=== PATIENT | male | born 1980 | race Two or more races ===

== ENCOUNTER 2016-12-13 10:44 | Inpatient (IN) | payer SELFPAY ==
[~2016-12-13] VITALS: Ht 172.7 cm; Wt 80.0 kg
[2016-12-13 11:51] LABS: Basophils # (auto) 0.1 uL; Basophils % (auto) 0.4 % (0.0-2.0); Eosinophils # (auto) 0 uL; Eosinophils % (auto) 0.1 % (0.0-7.0); Hematocrit 42.5 % (41.0-53.0); Hemoglobin 14.2 g/dL (13.5-17.5); Lymphocytes # (auto) 0.9 uL; Lymphocytes % (auto) 5.2 % (10.0-50.0); Mean Corpuscular Hemoglobin 29.8 pg (28.0-32.0); Mean Corpuscular Hgb Conc. 33.4 g/dL (32.0-36.0); Mean Corpuscular Volume 89.3 fL (80.0-100.0); Mean Platelet Volume 7.3 fL (7.4-10.4); Monocytes # (auto) 0.9 uL; Monocytes % (auto) 5.3 % (0.0-12.0); Neutrophils # (auto) 14.5 uL; Platelet Count (auto) 325 10^3/uL (140-450); White Blood Cell 16.3 10^3/uL (4.4-10.8)
[2016-12-13 12:15] LABS: Albumin 4.3 g/dL (3.4-5.0); BUN/Creatinine Ratio 7.6; Bilirubin, Total 0.6 mg/dL (0.2-1.0); Calcium 9.8 mg/dL (8.5-10.1); Potassium 3.7 mmol/L (3.5-5.1); Total Protein 8.3 g/dL (6.4-8.2)
[2016-12-13 13:45] LABS: Urine Bilirubin Negative (Negative); Urine Color Yellow (Yellow); Urine Glucose Normal (Normal); Urine Ketone Negative (Negative); Urine Mucus FEW (None Seen); Urine Nitrite Negative (Negative); Urine RBC 16 /hpf (0 - 3); Urine Squamous Epithelial Cell FEW /hpf (<5); Urine Urobilinogen Normal (Negative)
[2016-12-13 13:47] LABS: Urine Blood 2+ /uL (Negative)
[2016-12-13] MEDS ORDERED: SODIUM CHLORIDE 0.9% 1,000 ML IVB ONE (14:13)
[2016-12-13] MEDS ORDERED: KETOROLAC TROMETH 30 MG/ML 1ML VIAL IV ONE (14:30)
[2016-12-13] MEDS ORDERED: ONDANSETRON HCL 4 MG/2 ML VIAL IV ONE (14:30)
[2016-12-13] MEDS ORDERED: MORPHINE SULF INJ 2 MG/ML SYRINGE 1ML IV ONE (16:00)
[2016-12-13] MEDS ORDERED: cefTRIAXone 1GM/50ML D5W 50 ML IV ONE (18:00)
[2016-12-13] MEDS ORDERED: LORazepam 0.5 MG TAB PO PRN (18:00)
[2016-12-13] MEDS ORDERED: PROMETHAZINE HCL 25 MG/ML 1ML IV PRN (18:00)
[2016-12-13] MEDS ORDERED: TEMAZEPAM 15 MG CAP PO PRN (18:00)
[2016-12-13] MEDS ORDERED: ACETAMINOPHEN 500 MG TAB PO PRN (18:00)
[2016-12-13] MEDS: SODIUM CHLORIDE 0.9% 1,000 ML IV SCH (18:41)
[2016-12-13 20:20] VITALS: BP 126/80
[2016-12-13 21:30] VITALS: BP 126/80
[2016-12-13] MEDS: MORPHINE SULF INJ 2 MG/ML SYRINGE 1ML IV PRN (22:28)
[2016-12-14] MEDS: SODIUM CHLORIDE 0.9% 1,000 ML IV SCH ×2 (04:32→18:12)
[2016-12-14] MEDS: MORPHINE SULF INJ 2 MG/ML SYRINGE 1ML IV PRN ×2 (04:41→16:36)
[2016-12-14 05:21] VITALS: BP 129/71
[2016-12-14 05:46] LABS: Basophils # (auto) 0 uL; Basophils % (auto) 0.3 % (0.0-2.0); Eosinophils # (auto) 0.1 uL; Eosinophils % (auto) 0.5 % (0.0-7.0); Hematocrit 34.5 % (41.0-53.0); Hemoglobin 11.7 g/dL (13.5-17.5); Lymphocytes # (auto) 1.3 uL; Mean Corpuscular Hemoglobin 30.1 pg (28.0-32.0); Mean Corpuscular Hgb Conc. 33.9 g/dL (32.0-36.0); Mean Corpuscular Volume 88.7 fL (80.0-100.0); Mean Platelet Volume 8.1 fL (7.4-10.4); Monocytes # (auto) 1.1 uL; Monocytes % (auto) 8.8 % (0.0-12.0); Neutrophils # (auto) 9.6 uL; Neutrophils % (auto) 79.4 % (37.0-80.0); Platelet Count (auto) 271 10^3/uL (140-450); Red Cell Distribution Width 12.8 % (11.6-16.0); White Blood Cell 12.1 10^3/uL (4.4-10.8)
[2016-12-14 06:05] LABS: Albumin 3.4 g/dL (3.4-5.0); BUN/Creatinine Ratio 9.3; Bilirubin, Total 0.6 mg/dL (0.2-1.0); Calcium 8.6 mg/dL (8.5-10.1); Potassium 3.8 mmol/L (3.5-5.1); Total Protein 6.7 g/dL (6.4-8.2)
[2016-12-14 08:00] VITALS: BP 122/72
[2016-12-14] MEDS ORDERED: cefTRIAXone 1GM/50ML D5W 50 ML IV SCH (09:00)
[2016-12-14] MEDS: HYDROcodone-ACET 5/325MG TAB PO PRN ×2 (10:27→20:18)
[2016-12-14] MEDS: TAMSULOSIN HYDROCHLORIDE 0.4 MG CAP PO SCH ×2 (10:27→18:00)
[2016-12-14 12:00] VITALS: BP 118/67
[2016-12-14] MEDS ORDERED: PIPERACILLIN-TAZOB 3.375GM 100 ML IV ONE (13:00)
[2016-12-14] MEDS ORDERED: MILK OF MAGNESIA 30ML SUSP PO ONE (14:30)
[2016-12-14] MEDS ORDERED: MILK OF MAGNESIA 30ML SUSP PO PRN (14:30)
[2016-12-14 16:00] VITALS: BP 116/72
[2016-12-14] MEDS ORDERED: MORPHINE SULFATE 4 MG/ML SYRG IV ONE (17:45)
[2016-12-14] MEDS: PIPERACILLIN-TAZOB 3.375GM 100 ML IV SCH ×2 (18:12→23:31)
[2016-12-14 22:00] VITALS: BP 139/83
[2016-12-14] MEDS: MORPHINE SULFATE 4 MG/ML SYRG IV PRN (23:26)
[2016-12-15] MEDS: SODIUM CHLORIDE 0.9% 1,000 ML IV SCH ×5 (00:26→23:23)
[2016-12-15] MEDS: HYDROcodone-ACET 5/325MG TAB PO PRN ×5 (02:22→23:19)
[2016-12-15 05:00] VITALS: BP 119/68
[2016-12-15 05:42] LABS: Albumin 3.3 g/dL (3.4-5.0); BUN/Creatinine Ratio 10.2; Bilirubin, Total 0.7 mg/dL (0.2-1.0); Calcium 8.9 mg/dL (8.5-10.1); Potassium 3.7 mmol/L (3.5-5.1); Total Protein 6.9 g/dL (6.4-8.2)
[2016-12-15] MEDS: MORPHINE SULFATE 4 MG/ML SYRG IV PRN (05:42)
[2016-12-15 05:43] LABS: Basophils # (auto) 0 uL; Basophils % (auto) 0.3 % (0.0-2.0); Eosinophils # (auto) 0.2 uL; Eosinophils % (auto) 1.4 % (0.0-7.0); Hematocrit 35.2 % (41.0-53.0); Hemoglobin 11.8 g/dL (13.5-17.5); Lymphocytes # (auto) 1.3 uL; Lymphocytes % (auto) 11.6 % (10.0-50.0); Mean Corpuscular Hgb Conc. 33.5 g/dL (32.0-36.0); Mean Corpuscular Volume 89.3 fL (80.0-100.0); Mean Platelet Volume 7.8 fL (7.4-10.4); Monocytes # (auto) 1.2 uL; Monocytes % (auto) 10.6 % (0.0-12.0); Neutrophils # (auto) 8.6 uL; Neutrophils % (auto) 76.1 % (37.0-80.0); Platelet Count (auto) 289 10^3/uL (140-450); Red Cell Distribution Width 12.7 % (11.6-16.0); White Blood Cell 11.3 10^3/uL (4.4-10.8)
[2016-12-15] MEDS: PIPERACILLIN-TAZOB 3.375GM 100 ML IV SCH ×4 (05:48→23:22)
[2016-12-15 08:00] VITALS: BP 127/71
[2016-12-15 11:55] VITALS: BP 120/84
[2016-12-15 13:37] LABS: INR 1.05 (0.9-1.15); Partial Thromboplastin Time 29.5 sec (22.64-33.71); Prothrombin Time 10.8 sec (9.37-12.3)
[2016-12-15] MEDS ORDERED: LACTULOSE 20Gm/30ML SOLN PO PRN (15:45)
[2016-12-15] MEDS ORDERED: DOCUSATE SOD 100 MG CAP PO PRN (15:45)
[2016-12-15 16:00] VITALS: BP 135/84
[2016-12-15] MEDS: TAMSULOSIN HYDROCHLORIDE 0.4 MG CAP PO SCH (18:45)
[2016-12-15 21:30] VITALS: BP 121/69
[2016-12-16] MEDS: HYDROcodone-ACET 5/325MG TAB PO PRN ×2 (03:20→21:56)
[2016-12-16 05:00] VITALS: BP 128/66
[2016-12-16] MEDS: PIPERACILLIN-TAZOB 3.375GM 100 ML IV SCH ×2 (05:32→11:40)
[2016-12-16 05:54] LABS: Basophils # (auto) 0 uL; Basophils % (auto) 0.2 % (0.0-2.0); Eosinophils # (auto) 0.2 uL; Eosinophils % (auto) 1.5 % (0.0-7.0); Hematocrit 36.5 % (41.0-53.0); Hemoglobin 12.3 g/dL (13.5-17.5); Lymphocytes # (auto) 1.3 uL; Lymphocytes % (auto) 11.4 % (10.0-50.0); Mean Corpuscular Hgb Conc. 33.6 g/dL (32.0-36.0); Mean Corpuscular Volume 89.3 fL (80.0-100.0); Mean Platelet Volume 7.8 fL (7.4-10.4); Monocytes # (auto) 1.2 uL; Monocytes % (auto) 10.4 % (0.0-12.0); Neutrophils # (auto) 8.8 uL; Neutrophils % (auto) 76.5 % (37.0-80.0); Platelet Count (auto) 315 10^3/uL (140-450); Red Cell Distribution Width 12.8 % (11.6-16.0); White Blood Cell 11.5 10^3/uL (4.4-10.8)
[2016-12-16 06:24] LABS: Albumin 3.4 g/dL (3.4-5.0); BUN/Creatinine Ratio 9.2; Bilirubin, Total 0.7 mg/dL (0.2-1.0); Calcium 9.2 mg/dL (8.5-10.1); Potassium 3.8 mmol/L (3.5-5.1); Total Protein 7.3 g/dL (6.4-8.2)
[2016-12-16] MEDS ORDERED: MEPERIDINE HCL (50 MG/ML) 1 ML VIAL ONE (08:18)
[2016-12-16] MEDS ORDERED: MIDAZOLAM HCL 1MG/1ML-2 ML VIAL ONE (08:18)
[2016-12-16] MEDS ORDERED: fentaNYL CITRATE 100 MCG/2 ML VL ONE (08:18)
[2016-12-16 08:28] VITALS: BP 128/70
[2016-12-16] MEDS ORDERED: PROPOFOL 10 MG/ML 20 ML IV ONE (08:38)
[2016-12-16] MEDS ORDERED: DEXAMETHASONE SOD PHOS 10MG/1ML VIAL INJ ONE (08:38)
[2016-12-16] MEDS ORDERED: KETOROLAC TROMETH 30 MG/ML 1ML VIAL ONE (08:39)
[2016-12-16] MEDS ORDERED: MORPHINE SULF INJ 2 MG/ML SYRINGE 1ML IV PRN (09:00)
[2016-12-16] MEDS ORDERED: MIDAZOLAM HCL 1MG/1ML-2 ML VIAL IV PRN (09:00)
[2016-12-16] MEDS ORDERED: KETOROLAC TROMETH 30 MG/ML 1ML VIAL IV ONE (09:00)
[2016-12-16] MEDS ORDERED: LABETALOL HCL 5 MG/ML 4ML SYRINGE IV PRN (09:00)
[2016-12-16] MEDS ORDERED: ONDANSETRON HCL 4 MG/2 ML VIAL IV ONE (09:00)
[2016-12-16] MEDS ORDERED: ePHEDrine SULFATE 50 MG/ML AMP IV PRN (09:00)
[2016-12-16] MEDS ORDERED: HYDROmorphone HCL 2 MG/ML VL IV PRN (09:00)
[2016-12-16] MEDS: SODIUM CHLORIDE 0.9% 1,000 ML IV SCH ×3 (09:46→22:02)
[2016-12-16 12:54] VITALS: BP 123/75
[2016-12-16] MEDS ORDERED: cefTRIAXone 1GM/50ML D5W 50 ML IV ONE (13:30)
[2016-12-16 16:51] VITALS: BP 114/59
[2016-12-16] MEDS: TAMSULOSIN HYDROCHLORIDE 0.4 MG CAP PO SCH (17:19)
[2016-12-16 22:00] VITALS: BP 123/70
[2016-12-17] MEDS: HYDROcodone-ACET 5/325MG TAB PO PRN ×3 (03:18→12:56)
[2016-12-17 05:30] VITALS: BP 125/72
[2016-12-17 05:55] LABS: Basophils # (auto) 0 uL; Basophils % (auto) 0.4 % (0.0-2.0); Eosinophils # (auto) 0.3 uL; Eosinophils % (auto) 2.5 % (0.0-7.0); Hematocrit 36.5 % (41.0-53.0); Hemoglobin 12.4 g/dL (13.5-17.5); Lymphocytes # (auto) 1.2 uL; Mean Corpuscular Hemoglobin 30.1 pg (28.0-32.0); Mean Corpuscular Volume 88.6 fL (80.0-100.0); Mean Platelet Volume 7.6 fL (7.4-10.4); Monocytes % (auto) 8.6 % (0.0-12.0); Neutrophils # (auto) 9.5 uL; Neutrophils % (auto) 78.5 % (37.0-80.0); Platelet Count (auto) 329 10^3/uL (140-450); Red Cell Distribution Width 12.6 % (11.6-16.0); White Blood Cell 12.1 10^3/uL (4.4-10.8)
[2016-12-17 06:47] LABS: Potassium 3.8 mmol/L (3.5-5.1)
[2016-12-17 06:51] LABS: BUN/Creatinine Ratio 7.3; Calcium 8.7 mg/dL (8.5-10.1)
[2016-12-17] MEDS ORDERED: cefTRIAXone 1GM/50ML D5W 50 ML IV SCH (09:00)
[2016-12-17 09:06] VITALS: BP 112/66
[2016-12-17] MEDS: SODIUM CHLORIDE 0.9% 1,000 ML IV SCH (09:24)
[2016-12-17 12:01] VITALS: BP 118/76
[2016-12-17] MEDS ORDERED: TAM04C PO (13:42)
[2016-12-17] MEDS ORDERED: CIPR-217 PO (13:44)
[2016-12-17 14:41] LABS: Albumin 3.5 g/dL (3.4-5.0); Bilirubin, Direct 0.2 mg/dL (0-0.2); Bilirubin, Total 0.4 mg/dL (0.2-1.0); Total Protein 7.8 g/dL (6.4-8.2)
[2016-12-17 17:22] VITALS: BP 120/72
== END 2016-12-17 17:30 | disposition home or self-care (01) | DRG 694 ==
LOC: ER 10:45 → OVERFLOW 10:46 → WEST WING 19:50
PROVIDERS: ADMIT Internal Medicine; ATTEND Internal Medicine
DX: N13.2 Hydronephrosis with renal and ureteral calculous obstruction (principal); K40.20 Bilateral inguinal hernia, without obstruction or gangrene, not specified as recurrent; K76.0 Fatty (change of) liver, not elsewhere classified; N17.0 Acute kidney failure with tubular necrosis; Z80.3 Family history of malignant neoplasm of breast; Z87.442 Personal history of urinary calculi; Z82.49 Family history of ischemic heart disease and other diseases of the circulatory system
CPT/HCPCS: 36415; 71010; 74176; 76705; 76775; 80048; 80053; 80076; 81001; 85025; 85049; 85610; 85730; 87086; 96374; 96375; J0696; J1100; J1885; J2250; J2405; J2543; J2704

== ENCOUNTER 2017-02-02 17:14 | Emergency (ER) | payer MEDICAID ==
[~2017-02-02] VITALS: Ht 172.7 cm; Wt 77.1 kg
[~2017-02-02 17:14] MED LIST: CIPR-217 PO; TAM04C PO
[2017-02-02 17:35] VITALS: BP 124/89
[2017-02-02] MEDS ORDERED: IBUPROFEN 600 MG TAB PO ONE (21:00)
== END 2017-02-02 21:23 | disposition home or self-care (01) ==
LOC: ER 17:35
DX: S83.91XA Sprain of unspecified site of right knee, initial encounter (principal); M25.461 Effusion, right knee; X58.XXXA Exposure to other specified factors, initial encounter; Y93.02 Activity, running; Y99.8 Other external cause status; Y92.89 Other specified places as the place of occurrence of the external cause
CPT/HCPCS: 29505; 73562

== ENCOUNTER 2018-09-28 22:10 | Emergency (ER) | payer MEDICAID ==
[~2018-09-28] VITALS: Ht 175.3 cm; Wt 81.6 kg
[2018-09-28] MEDS ORDERED: ACETAMINOPHEN 325 MG TAB PO ONE ×2 (22:34→22:45)
[2018-09-28 23:14] LABS: Urine Bacteria FEW /hpf (None Seen); Urine Blood 3+ /uL (Negative); Urine Specific Gravity 1.009 (1.001-1.035); Urine WBC 2 /hpf (0 - 3)
[2018-09-28 23:17] LABS: Basophils # (auto) 0 uL; Basophils % (auto) 0.5 % (0.0-2.0); Eosinophils # (auto) 0.5 uL; Eosinophils % (auto) 5.2 % (0.0-7.0); Hematocrit 42.4 % (41.0-53.0); Hemoglobin 14.6 g/dL (13.5-17.5); Lymphocytes # (auto) 2.2 uL; Mean Corpuscular Hemoglobin 31.6 pg (28.0-32.0); Mean Corpuscular Hgb Conc. 34.5 g/dL (32.0-36.0); Mean Corpuscular Volume 91.5 fL (80.0-100.0); Monocytes # (auto) 0.7 uL; Neutrophils # (auto) 5.2 uL; Neutrophils % (auto) 60.3 % (37.0-80.0); Nucleated Red Blood Cells % 0.2 %; Platelet Count (auto) 283 10^3/uL (140-450); Red Blood Cells 4.63 10^6/uL (4.5-5.90); Red Cell Distribution Width 13.2 % (11.8-14.3); White Blood Cell 8.6 10^3/uL (4.4-10.8)
[2018-09-28 23:46] LABS: Albumin 4.3 g/dL (3.4-5.0); BUN/Creatinine Ratio 9.6; Calcium 9.1 mg/dL (8.5-10.1); Potassium 3.7 mmol/L (3.5-5.1)
[2018-09-28 23:49] LABS: Bilirubin, Total 0.4 mg/dL (0.2-1.0); Total Protein 7.8 g/dL (6.4-8.2)
[2018-09-29] MEDS ORDERED: KETOROLAC TROMETH 60MG/2ML VIAL IM ONE (04:00)
[2018-09-29 04:06] VITALS: BP 106/71
== END 2018-09-29 03:48 | disposition home or self-care (01) ==
LOC: ER 22:10
DX: N20.0 Calculus of kidney (principal); Z79.2 Long term (current) use of antibiotics; Z79.899 Other long term (current) drug therapy
CPT/HCPCS: 36415; 74176; 80053; 81001; 85025; 96372

== ENCOUNTER 2019-08-09 11:18 | Emergency (ER) | payer MEDICAID ==
[~2019-08-09] VITALS: Ht 177.8 cm; Wt 81.6 kg
[2019-08-09 12:57] VITALS: BP 117/78
[2019-08-09] MEDS ORDERED: KETOROLAC TROMETH 60MG/2ML VIAL IM ONE (13:15)
== END 2019-08-09 15:21 | disposition home or self-care (01) ==
LOC: ER 11:23
DX: M79.672 Pain in left foot (principal); W22.8XXA Striking against or struck by other objects, initial encounter; Y93.01 Activity, walking, marching and hiking; Y92.89 Other specified places as the place of occurrence of the external cause; Y99.8 Other external cause status
CPT/HCPCS: 73630; 96372; 99283; J1885

== ENCOUNTER 2021-06-17 12:55 | Inpatient (IN) | payer MEDICAID ==
[~2021-06-17] VITALS: Ht 175.3 cm; Wt 54.9 kg
[~2021-06-17 12:55] MED LIST changes: -CIPR-217 PO; +CIPR500T4 PO
[2021-06-17] MEDS ORDERED: ONDANSETRON HCL 4 MG/2 ML VIAL IV ONE (13:15)
[2021-06-17] MEDS ORDERED: SODIUM CHLORIDE 0.9% 1,000 ML IV ONE (13:15)
[2021-06-17] MEDS ORDERED: SODIUM CHLORIDE 0.9% 1,000 ML IVB ONE (13:15)
[2021-06-17 14:02] LABS: Basophils # (auto) 0 10 ^3/uL (0-0.2); Basophils % (auto) 0.5 % (0.0-2.0); Eosinophils # (auto) 0.2 10 ^3/uL (0-0.8); Eosinophils % (auto) 2.7 % (0.0-7.0); Hematocrit 41.7 % (41.0-53.0); Hemoglobin 14.4 g/dL (13.5-17.5); Lymphocytes # (auto) 1.9 10 ^3/uL (0.4-5.4); Lymphocytes % (auto) 30.9 % (10.0-50.0); Mean Corpuscular Hemoglobin 30.8 pg (28.0-32.0); Mean Corpuscular Hgb Conc. 34.5 g/dL (32.0-36.0); Mean Corpuscular Volume 89.3 fL (80.0-100.0); Monocytes # (auto) 0.5 10 ^3/uL (0-1.3); Monocytes % (auto) 7.4 % (0.0-12.0); Neutrophils # (auto) 3.6 10 ^3/uL (1.6-8.6); Neutrophils % (auto) 58.5 % (37.0-80.0); Red Blood Cells 4.67 10^6/uL (4.5-5.90); Red Cell Distribution Width 13.4 % (11.8-14.3); White Blood Cell 6.2 10^3/uL (4.4-10.8)
[2021-06-17 14:39] LABS: Albumin 4.2 g/dL (3.4-5.0); Potassium 4.1 mmol/L (3.5-5.1)
[2021-06-17 14:40] LABS: BUN/Creatinine Ratio 9.9
[2021-06-17 14:43] LABS: Bilirubin, Total 0.4 mg/dL (0.2-1.0); Total Protein 7.5 g/dL (6.4-8.2)
[2021-06-17] MEDS ORDERED: KETOROLAC TROMETH 30 MG/ML 1ML VIAL IV ONE (16:15)
[2021-06-17] MEDS ORDERED: TAMSULOSIN HYDROCHLORIDE 0.4 MG CAP PO ONE ×2 (16:15)
[2021-06-17 17:34] LABS: Urine Bacteria FEW /hpf (None Seen); Urine Blood 3+ /uL (Negative); Urine Specific Gravity 1.008 (1.001-1.035); Urine WBC 3 /hpf (0 - 3)
[2021-06-17] MEDS ORDERED: MORPHINE SULFATE INJECTION 2 MG/ML SYRG IV PRN (19:00)
[2021-06-17] MEDS ORDERED: KETOROLAC TROMETH 30 MG/ML 1ML VIAL IV PRN (19:00)
[2021-06-17] MEDS ORDERED: ONDANSETRON HCL 4 MG/2 ML VIAL IV PRN (19:00)
[2021-06-17] MEDS ORDERED: NITROGLYCERIN 0.4 MG SL TAB SL PRN (19:00)
[2021-06-17] MEDS: SODIUM CHLORIDE 0.9% 1,000 ML IV SCH (19:11)
[2021-06-17 20:11] VITALS: BP 111/72
[2021-06-17 22:38] VITALS: BP 111/72
[2021-06-18] MEDS: SODIUM CHLORIDE 0.9% 1,000 ML IV SCH ×4 (01:40→21:40)
[2021-06-18 05:00] VITALS: BP 108/59
[2021-06-18 09:00] VITALS: BP 115/70
[2021-06-18] MEDS ORDERED: MANNITOL FTV 25% 12.5 GM/50 ML 50 ML IV ONE (09:30)
[2021-06-18 13:00] VITALS: BP 119/68
[2021-06-18 17:00] VITALS: BP 122/79
[2021-06-18] MEDS ORDERED: TAMSULOSIN HYDROCHLORIDE 0.4 MG CAP PO SCH (18:00)
[2021-06-18 20:00] VITALS: BP 114/51
[2021-06-18 22:00] VITALS: BP 114/61
[2021-06-19] MEDS: SODIUM CHLORIDE 0.9% 1,000 ML IV SCH ×2 (01:55→11:00)
[2021-06-19 05:00] VITALS: BP_SYST 106; BP_SYST 121; BP_DIAS 55; BP_DIAS 69
[2021-06-19 08:00] VITALS: BP 107/64
[2021-06-19 08:45] VITALS: BP 107/64
[2021-06-19 12:47] VITALS: BP 102/63
[2021-06-19 13:01] VITALS: BP 102/63
== END 2021-06-19 13:30 | disposition home or self-care (01) | DRG 465 ==
LOC: ER 12:55 → OVERFLOW 18:46 → WEST WING 20:11
PROVIDERS: ADMIT Nurse Practitioner Acute Care; ATTEND Internal Medicine
DX: N13.2 Hydronephrosis with renal and ureteral calculous obstruction (principal); R16.0 Hepatomegaly, not elsewhere classified; R31.9 Hematuria, unspecified; Z20.822 Contact with and (suspected) exposure to COVID-19; Z87.442 Personal history of urinary calculi
CPT/HCPCS: 36415; 74018; 74176; 76775; 80053; 81001; 83690; 85025; 87426; 96361; 96374; G0378; J1885; J2405